=== PATIENT | female | born 1960 | race American Indian/Alaskan Native ===

== ENCOUNTER 2022-03-18 13:48 | Emergency (ER) | payer SELFPAY ==
[2022-03-18] MEDS ORDERED: fentaNYL 100 MCG/2 ML INJ IV ONE (14:32)
[2022-03-18] MEDS ORDERED: ONDANSETRON 4 MG/2 ML INJ IV ONE (14:32)
[2022-03-18 16:12] VITALS: BP 148/78
--- NOTE | 2022-03-18 16:46 | XRay Report ---
ABDOMEN 1 VIEW(S) INDICATION / CLINICAL INFORMATION: constipation. COMPARISON: None available. FINDINGS: TUBES / LINES: None. BOWEL GAS PATTERN/EXTRALUMINAL GAS: No acute findings. Moderate constipation. No pneumatosis or secon latanya signs of free air. ADDITIONAL FINDINGS: No significant additional findings. IMPRESSION: 1. No acute findings. Moderate constipation. Signer Name: Rajinder Lozano MD Signed: 03/18/2022 4:42 PM Workstation Name: [id number]
--- NOTE | 2022-03-18 17:31 | Emergency Department Report ---
ED General Adult HPI - General Chief complaint: Rectal Pain Stated complaint: RECTAL PAIN Time Seen by Provider: 03/18/22 16:04 Source: patient, EMS Mode of arrival: Stretcher Limitations: No Limitations - History of Present Illness Initial comments: 62-year-old female with a history of right-sided breast cancer, last chemotherapy was approximately 1 week ago, self-report of being "anemic", currently taking supplemental iron pills, presents for evaluation of rectal pain. Patient reports that she "sometimes suffers from chronic constipation but it has been pretty bad lately." She states that she felt pain in her rectum today while attempting to have a bowel movement. She took 3 tablets of bisacodyl at approximately 9 AM this morning and due to worsening rectal pain and pressure, her attempted to insert an enema into her rectum. However she states that enema would not remain in her rectum and it "slid out." She reports mild nausea. No vomiting fevers or chills. Patient states that since being in the emergency department, she had a large bowel movement and currently no longer has rectal pain. She denies bloody stools. She denies rectal bleeding. She denies penetrative and direct rectal trauma. No vomiting fevers or chills. She states she is not taking stool softeners regularly. Pain currently 0/10 MD Complaint: rectal pain -: Gradual, hour(s), days(s) Location: genitals (rectum) Radiation: non-radiation Severity scale (0 -10): 2 Quality: aching, constant Consistency: now resolved Improves with: other Worsens with: other Associated Symptoms: denies: denies other symptoms, confusion, chest pain, cough, diaphoresis, fever/chills, headaches, loss of appetite, malaise, nausea/vomiting, rash, seizure, shortness of breath, syncope, weakness, other Treatments Prior to Arrival: other - Related Data Allergies Allergy/AdvReac Type Severity Reaction Status Date / Time No Known Allergies Allergy Verified 03/18/22 13:50 ED Review of Systems ROS: Stated complaint: RECTAL PAIN Other details as noted in HPI Comment: All other systems reviewed and negative Constitutional: no symptoms reported ENT: as per HPI Respiratory: no symptoms reported Cardiovascular: as per HPI Endocrine: no symptoms reported Gastrointestinal: constipation, other. denies: abdominal pain, nausea, vomiting, diarrhea, hematemesis, melena, hematochezia Genitourinary: denies: urgency, dysuria, frequency, hematuria, discharge, abnormal menses, dyspareunia, other Musculoskeletal: denies: back pain, joint swelling, arthralgia, myalgia Skin: denies: rash, lesions, change in color, change in hair/nails, pruritus Neurological: denies: headache, weakness, numbness, paresthesias, confusion, abnormal gait, vertigo, other Psychiatric: denies: anxiety, depression, auditory hallucinations, visual hallucinations, homicidal thoughts, suicidal thoughts Hematological/Lymphatic: denies: easy bleeding, easy bruising, swollen glands, other ED Past Medical Hx - Past Medical History Previous Medical History?: Yes Hx Hypertension: Yes Hx Diabetes: Yes Hx of Cancer: Yes (Breast) Additional medical history: anemia, hemorrhoids (external ) - Surgical History Additional Surgical History: , Port for chemo on upper right chest - Family History Family history: no significant - Social History Smoking Status: Never Smoker Substance Use Type: None ED Physical Exam - General Limitations: No Limitations General appearance: alert - Head Head exam: Present: atraumatic, normocephalic, normal inspection - Eye Eye exam: Present: normal appearance, PERRL, EOMI. Absent: scleral icterus, conjunctival injection, nystagmus, periorbital swelling, periorbital tenderness, other Pupils: Present: normal accommodation. Absent: irregular, unequal, miosis, mydriatic - ENT ENT exam: Present: normal exam, normal orophraynx, mucous membranes moist, normal external ear exam - Neck Neck exam: Present: normal inspection - Respiratory Respiratory exam: Present: normal lung sounds bilaterally - Cardiovascular Cardiovascular Exam: Present: regular rate, normal rhythm - GI/Abdominal GI/Abdominal exam: Present: soft, normal bowel sounds. Absent: distended, tenderness, guarding, rebound, rigid, diminished bowel sounds, hyperactive bowel sounds, hypoactive bowel sounds, organomegaly, mass, bruit, pulsatile mass, hernia, other - Rectal Rectal exam: Absent: deferred - Extremities Exam Extremities exam: Present: normal inspection, full ROM, normal capillary refill - Back Exam Back exam: Present: normal inspection, full ROM. Absent: tenderness, CVA tenderness (R), CVA tenderness (L), muscle spasm, paraspinal tenderness, vertebral tenderness - Neurological Exam Neurological exam: Present: alert, oriented X3, CN II-XII intact, normal gait, reflexes normal. Absent: altered, abnormal gait, motor sensory deficit - Psychiatric Psychiatric exam: Present: normal affect, normal mood - Skin Skin exam: Present: warm, dry, intact, normal color. Absent: rash, cyanosis, diaphoretic, erythema, urticaria, vesicles, petechiae, pallor, abrasion, ecchymosis, other ED Course Vital Signs 03/18/22 03/18/22 03/18/22 13:48 14:14 16:12 Pulse Rate 74 74 Respiratory 14 Rate Blood Pressure 140/70 148/78 [Left] O2 Sat by Pulse 98 100 Oximetry - Reevaluation(s) Reevaluation #1: 03/18/22 14:37 pt is sitting on stretcher, very friendly comfortable and well appearing; nad; denies any pain ED Medical Decision Making - Radiology Data Radiology results: report reviewed see radiology report; +moderate constipation - Medical Decision Making 62yo F w/R sided breast cancer, presents for evaluation of rectal pain and constipation. VSS. Pt is well appearing on exam. Pt verbalized agreement to have abdominal xray and serum labs checked. These were subsequently ordered for the patient. 6:11pm: Informed by pt's ED RN, that the patient eloped. Per her verbal report, the pt did not have blood work drawn by phlebotomy prior to eloping from the emergency department. Critical care attestation.: If time is entered above; I have spent that time in minutes in the direct care of this critically ill patient, excluding procedure time. ED Disposition Clinical Impression: Rectal pain Disposition: 07 LEFT AWOL/ELOPED Is pt being admited?: No Does the pt Need Aspirin: No Condition: Stable
== END 2022-03-18 17:46 | disposition left against medical advice (07) ==
LOC: ED 13:48
DX: K62.89 Other specified diseases of anus and rectum (principal); I10 Essential (primary) hypertension; E11.9 Type 2 diabetes mellitus without complications; Z85.3 Personal history of malignant neoplasm of breast
CPT/HCPCS: 74018; 99283